=== PATIENT | female | born 1950 | race Caucasian/White ===

== ENCOUNTER 2017-01-26 08:07 | Emergency (ER) | payer BC ==
[2017-01-26 08:25] VITALS: BP 144/73
--- NOTE | 2017-01-26 08:53 | EDM.PDOC ---
ED HPI Skin/Rash - General Chief Complaint: Skin Complaint Stated Complaint: BIT ON RT LEG/RED KAW Time Seen by Provider: 01/26/17 08:41 Source: Reports: Patient, RN notes reviewed History Limitations: Reports: No limitations - History of Present Illness INITIAL COMMENTS - FREE TEXT/NARRATIVE: 66-year-old female presents emergency department today with a rash right leg she did admit to working out in the yard a couple of days ago concerned about tickborne illness no other symptoms - Related Data Allergies Allergy/AdvReac Type Severity Reaction Status Date / Time No Known Allergies Allergy Verified 01/26/17 08:28 Home Meds: Ambulatory Orders Medication Instructions Recorded Confirmed Aspirin [Adult Low Dose Aspirin EC] 81 mg PO DAILY 01/26/17 01/26/17 Multivits-Min/Iron/FA/Lutein 1 each PO DAILY 01/26/17 01/26/17 [Centrum Silver Women Tablet] Past Medical History HEENT History: Reports: Impaired vision Other Respiratory History: SARCOIDOSIS 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: Reports: GERD 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: Musculoskeletal History: Reports: Arthritis Other Musculoskeletal History: Right knee - Infectious Disease History Infectious Disease History: Reports: C-difficile, Mumps - Past Surgical History HEENT Surgical History: Reports: Tonsillectomy GI Surgical History: Reports: Appendectomy Oncologic Surgical History: Reports: Other (see below) Other Oncologic Surgeries/Procedures: pre cander skin lesions removed Social & Family History - Tobacco Use Smoking Status *Q: Never Smoker Second Hand Smoke Exposure: No - Caffeine Use Caffeine Use: Reports: Coffee - Recreational Drug Use Recreational Drug Use: No ED ROS GENERAL - Review of Systems Review Of Systems: See Below Constitutional: Reports: no symptoms Respiratory: Reports: No Symptoms Cardiovascular: Reports: No symptoms GI/Abdominal: Reports: No symptoms : Reports: no symptoms Skin: Reports: rash ED EXAM, SKIN/RASH Exam: See Below Text/Narrative:: Examination of the integument system reveals bull's-eye rash approximately 8 cm in diameter with central clearing 4 cm there is a remanence at the center removed with a #15 blade Exam Limited By: No limitations General Appearance: alert, WD/WN, no apparent distress Course - Vital Signs Last Recorded V/S: Last Vital Signs Temp 98.2 F 01/26/17 08:29 Pulse 105 H 01/26/17 08:29 Resp 15 01/26/17 08:29 BP 144/73 H 01/26/17 08:29 Pulse Ox 96 01/26/17 08:29 Departure - Departure Time of Disposition: 08:53 Disposition: Home, Self-Care 01 Condition: good Clinical Impression: Erythema migrans (Lyme disease) Forms: ED Department Discharge Additional Instructions: Take full course of antibiotics, Please followup with your primary care provider in 10-14 days if not better, please call return to the emergency department with worsening of symptoms. - Assessment/Plan Plan: Assessment Acuity = acute Site and laterality = erythema migrans Etiology = probable tickborne illness concern for development of Lyme disease Manifestations = none Location of injury = home Lab values = none Plan Prescription written for doxycycline 100 mg by mouth twice a day x21 days follow up with primary care in 10-14 days if no improvement Patient was in agreement with the plan all questions were answered, they were instructed to return to the emergency department or call for worsening symptoms. This note was dictated using [employer] voice recognition software please call with any questions.
== END 2017-01-26 09:02 | disposition home or self-care (01) ==
LOC: JP.ED 08:07
DX: A69.20 Lyme disease, unspecified (principal); Z79.82 Long term (current) use of aspirin; Z79.899 Other long term (current) drug therapy; Z90.49 Acquired absence of other specified parts of digestive tract; Z98.890 Other specified postprocedural states
CPT/HCPCS: 99283

== ENCOUNTER 2017-10-27 06:26 | Day surgery (SDC) | payer BC ==
[2017-10-27] MEDS ORDERED: Sodium Chloride 0.9% 1,000 ML IV SCH (07:00)
[2017-10-27] MEDS ORDERED: Propofol 200 MG/20 ML SDV ONE ×2 (07:33→08:14)
[2017-10-27] MEDS ORDERED: fentaNYL 100 MCG/2 ML SDV ONE (07:33)
[2017-10-27] MEDS ORDERED: Midazolam 1 MG/ML 2 ML SDV ONE (07:33)
[2017-10-27 09:28] VITALS: BP 121/70
--- NOTE | 2017-10-30 18:36 | OR ---
DATE OF PROCEDURE: 10/27/2017 PROCEDURE: Colonoscopy. FINDINGS: Normal colonoscopy. PREOPERATIVE DIAGNOSIS: Screening colonoscopy. POSTOPERATIVE DIAGNOSIS: Screening colonoscopy. RISKS: Risks, benefits, alternatives, and limitations including, but not limited to infection, bleeding, and perforation were explained to the patient who wished to proceed. PROCEDURE IN DETAIL: The patient was placed in left lateral decubitus position. Digital rectal exam was performed without abnormality. The scope was introduced and advanced atraumatically to the ileocecal valve. The scope was brought back to the ascending, transverse, descending colon, and retroflexed. No old or new blood. No masses. No polyps. No colitis. The patient tolerated the procedure well. Raffi Abraham MD /[id number]
== END 2017-10-27 09:35 | disposition home or self-care (01) ==
LOC: JP.SDS 06:26
PROVIDERS: ATTEND Surgery
DX: Z12.11 Encounter for screening for malignant neoplasm of colon (principal); K21.9 Gastro-esophageal reflux disease without esophagitis; E66.9 Obesity, unspecified
CPT/HCPCS: 45378; J2250; J2704; J3010; J7040; J7030

== ENCOUNTER 2018-03-27 20:27 | Emergency (ER) | payer MEDICARE, BC ==
[2018-03-27 21:15] VITALS: BP 161/91
--- NOTE | 2018-03-27 22:13 | EDM.PDOC ---
ED HPI GENERAL MEDICAL PROBLEM - General Chief Complaint: General Stated Complaint: RING IS STUCK Time Seen by Provider: 03/27/18 21:00 Source of Information: Reports: Patient History Limitations: Reports: No Limitations - History of Present Illness INITIAL COMMENTS - FREE TEXT/NARRATIVE: Maisha is a 67-year-old female who presents to the emergency department today with left ring swollen and ring stuck. Patient reports that her fingers began to hurt secondary to her arthritis and she attempted to get her ring off swelling became significant and she was unable to. Patient denies any trauma to her finger. Onset: Today, Gradual - Related Data Allergies Allergy/AdvReac Type Severity Reaction Status Date / Time No Known Allergies Allergy Verified 10/27/17 06:47 Home Meds: Home Meds Aspirin [Adult Low Dose Aspirin EC] 81 mg PO DAILY 01/26/17 [History] Multivits-Min/Iron/FA/Lutein [Centrum Silver Women Tablet] 1 each PO DAILY 01/26 [History] Calcium Carbonate [Calcium] 1,200 mg PO DAILY 10/23/17 [History] Fluorouracil [Efudex 5% Cream] 1 med.swab TOP ASDIRECTED PRN 10/23/17 [History] Gluc HCl/Csa/Stephen Hy/Hyalur Ac [Glucosamine Chondroitin] 1 tab PO DAILY [History] Cyanocobalamin (Vitamin B-12) [B-12] 1,000 mcg PO DAILY 10/27/17 [History] Garlic 1,000 mg PO DAILY 10/27/17 [History] Turmeric Root Extract [Turmeric] 500 mg PO DAILY 10/27/17 [History] Ubidecarenone [Co Q-10] 100 mg PO DAILY 10/27/17 [History] Past Medical History HEENT History: Reports: Impaired Vision, Other (See Below) Other HEENT History: paralysieds vocal cord Other Respiratory History: SARCOIDOSIS 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: Reports: 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: Musculoskeletal History: Reports: Arthritis Other Musculoskeletal History: Right knee Oncologic (Cancer) History: Reports: Other (See Below) 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 ED EXAM, GENERAL - Physical Exam Exam: See Below Exam Limited By: No Limitations General Appearance: Alert, WD/WN, No Apparent Distress Neck: Normal Inspection Respiratory/Chest: No Respiratory Distress Cardiovascular: Regular Rate, Rhythm Extremities: Other (Left ring finger is swollen, capillary refill is intact. No deformity.) Neurological: Alert, Oriented Psychiatric: Normal Affect Skin Exam: Warm, Dry, Intact Course - Vital Signs Last Recorded V/S: Last Vital Signs Temp 36.4 C 03/27/18 21:14 Pulse 98 03/27/18 21:14 Resp 16 03/27/18 21:14 BP 161/91 H 03/27/18 21:14 Pulse Ox 98 03/27/18 21:14 Maisha is here for a ring removal. Please refer to history of present illness and focused exam. Ring was soldered with director of revenue cycle management and removed from finger and given back to patient. Patient was instructed to keep her finger elevated, apply ice, she can take Tylenol ibuprofen as needed. Reasons to return to the emergency department were discussed, patient is agreeable to plan of care and discharged in stable condition. Departure - Departure Time of Disposition: 22:30 Disposition: Home, Self-Care 01 Clinical Impression: Ring or other jewelry causing external constriction, initial encounter Clinical Impression: (Ruled Out): Ring or other jewelry causing external constriction, sequela - Discharge Information Referrals: Dionisio Barnhart MD [Primary Care Provider] - Additional Instructions: Ice and elevate finger. Ibuprofen/Tylenol for pain as needed.
== END 2018-03-27 22:25 | disposition home or self-care (01) ==
LOC: JP.ED 20:27
DX: S60.445A External constriction of left ring finger, initial encounter (principal); Z79.82 Long term (current) use of aspirin; Z79.899 Other long term (current) drug therapy; W49.04XA Ring or other jewelry causing external constriction, initial encounter
CPT/HCPCS: 99282; 99283

== ENCOUNTER 2022-07-23 07:45 | Emergency (ER) | payer BC ==
[2022-07-23] MEDS ORDERED: methylPREDNISolone Sodium Succinate 125 MG/2 ML SDV ONE (08:30)
[2022-07-23] MEDS ORDERED: Albuterol 0.083% 2.5 MG/3 ML Neb Soln ONE (08:30)
[2022-08-17 03:04] LABS: ESTIMATED GFR 79 mL/min (>60)
[2022-08-17 11:36] LABS: CORONAVIRUS COVID-19 NAA POSITIVE (NEGATIVE)
== END 2022-07-23 10:11 | disposition home or self-care (01) ==
LOC: JP.ED 07:45
DX: U07.1 COVID-19 (principal); R06.02 Shortness of breath; R06.1 Stridor
CPT/HCPCS: 0241U; 36415; 70360; 71046; 80048; 83605; 85025; 86140; 94640; 96372; 99284; J2930

== ENCOUNTER 2023-10-08 08:27 | Day surgery (SDC) | payer BC ==
[2023-10-08] MEDS ORDERED: Propofol 200 MG/20 ML SDV ONE (09:28)
[2023-10-08] MEDS ORDERED: fentaNYL 50 MCG/ML SDV ONE (09:28)
[2023-10-08] MEDS ORDERED: Lactated Ringers 1,000 ML IV SCH (09:30)
[2023-10-08 11:11] VITALS: BP 132/76; PULSE 71
== END 2023-10-08 11:37 | disposition home or self-care (01) ==
LOC: JP.SDS 08:27
PROVIDERS: ATTEND Student in an Organized Health Care Education/Training Program
DX: Z12.11 Encounter for screening for malignant neoplasm of colon (principal); K57.30 Diverticulosis of large intestine without perforation or abscess without bleeding; K21.9 Gastro-esophageal reflux disease without esophagitis
CPT/HCPCS: 45378; J2704; J3010; J7120